=== PATIENT | male | born 1970 | race Caucasian/White ===

== ENCOUNTER → 2020-06-18 | Outpatient (CLI) | payer SELFPAY ==
--- NOTE | 2020-06-18 15:17 | KCIC ---
CT for coronary artery calcium scoring, without IV contrast, 06/18/2020 3:12 PM INDICATION: Reason: CARDIOVASCULAR SCREENING, HYPERTENSION, LEFT BUNDLE BRANCH BLOCK / Spl. Instructions: / History: Family hx. heart disease, grandfather, Technique: Noncontrast CT images through the coronary arteries was performed . Findings: No significant noncardiac findings are identified. Visual inspection of the coronary arteries: Demonstrates calcification in the left anterior descending artery. Some motion noted. The remaining coronary arteries are without discernible calcified plaque. The computer-generated calcium scoring utilizing AJ-130 criteria are as follows: Left Main Artery: 0. Left Anterior Descending Artery: 53. Left Circumflex Artery: 0. Right Coronary Artery: 0. Posterior Descending Artery: 0. The total calcium score is 53. Impression: Your total calcium score is 53. Plaque is present. This correlates with mild heart disease and a moderate risk for a myocardial infarction. Table: 0: No plaque is present. The chance of significant heart disease is less than 5%, and corresponds to a very low risk for a myocardial infarction. 1-10: A small amount of plaque is present. The chance of significant heart disease is less than 10%, and corresponds to a low risk for a myocardial infarction. 11-100: Plaque is present. This correlates with mild heart disease and a moderate risk for a myocardial infarction. 101-400: A moderate amount of plaque is present. This correlates with heart disease, and a moderate to high risk for a myocardial infarction. Over 400: A large amount of plaque is present. This correlates with a greater than 90% chance of a high grade stenosis. The risk for myocardial infarction is high. Electronically signed by: Toni Marroquin MD (06/18/2020 3:14 PM) [id number]
== END | disposition home or self-care (01) ==
LOC: KCIC CT 14:28
PROVIDERS: ATTEND Family Medicine
DX: Z13.6 Encounter for screening for cardiovascular disorders (principal); I25.10 Atherosclerotic heart disease of native coronary artery without angina pectoris; I10 Essential (primary) hypertension
CPT/HCPCS: 75571

== ENCOUNTER → 2021-11-16 | Day surgery (SDC) | payer BC ==
[~2021-11-16] VITALS: Ht 195.6 cm; Wt 118.0 kg
[~2021-11-16] MED LIST: AMLO-186 PO; IV RINGERS,LACTATED 1000ML 1,000 ML IV SCH; LIDOCAINE 2% PF 5 ML VIAL. ONE; LOSA-73 PO; PROPOFOL 10 MG/ML (20ML) VIAL. IV ONE
[2021-11-16 11:32] VITALS: BP 144/95
[2021-11-16 13:00] VITALS: BP 137/66
--- NOTE | 2021-11-18 17:07 | PATHOLOGY ---
[facility] Accession Number: [id number] . 01 Material submitted: . PART A: colon - POLYPECTOMY AT 55 CM PART B: cecum - CECUM POLYP BIOPSY PART C: colon - POLYPECTOMY AT 30 CM . 01 Clinical history: . CRC SCREENING COLONOSCOPY . 02 Diagnosis: A. Colonic mucosa, polypectomy at 55 cm: - Tubular adenoma. . B. Colonic mucosa, cecal polyp biopsy: - Tubular adenoma. . C. Colonic mucosa, polypectomy at 30 cm: - Hyperplastic polyp. (JPM:ac; 11/18/2021) QMS 11/18/2021 1007 Local . 02 Comment: There is no high grade dysplasia or evidence of malignancy. (JPM:ac; 11/18/2021) . 02 Electronically signed: . Conor Pickett MD, Pathologist NPI- [id number] . 01 Gross description: . A. The specimen is received in formalin, labeled "Mauricio Jung, polypectomy at 55 cm" and consists of a brown-villela polypoid tissue (0.8 x 0.7 x 0.4 cm). The proposed surgical margin is inked black. The specimen is serially sectioned and submitted entirely in A1. . B. The specimen is received in formalin, labeled "Erich, Mauricio, cecum polyp BX" and consists of 3 villela irregular tissue aggregating 0.8 x 0.7 x 0.2 cm which are submitted in toto in B1. . C. The specimen is received in formalin, labeled "Erich, Mauricio, polypectomy at 30 cm" and consists of a villela irregular tissue measuring 0.3 x 0.3 x 0.2 cm which is submitted in toto in C1. ([place]; 11/17/2021) DKA/DKA 11/17/2021 1054 Local . 02 Pathologist provided ICD-10: D12.6, D12.0, K63.5 . 02 CPT . 743710, [id number], [id number] Specimen Comment: A courtesy copy of this report has been sent to [phone], [phone] Specimen Comment: [id number] Specimen Comment: Report sent to / DR BUI Specimen Comment: A duplicate report has been generated due to demographic updates. Performed at: 01 [facility] [address], [place] [id number] MD Lenny Carreon MD Phone: [phone] Performed at: 02 [facility] [address], [place] [id number] MD Conor Pickett MD Phone: [phone]
== END | disposition home or self-care (01) ==
LOC: ENDOS 11:08
PROVIDERS: ATTEND Surgery
DX: Z12.11 Encounter for screening for malignant neoplasm of colon (principal); D12.6 Benign neoplasm of colon, unspecified; D12.0 Benign neoplasm of cecum; K63.89 Other specified diseases of intestine; I10 Essential (primary) hypertension; Z87.891 Personal history of nicotine dependence; Z79.899 Other long term (current) drug therapy; Z98.890 Other specified postprocedural states
CPT/HCPCS: 45380; 45385; J2704; 45384